=== PATIENT | female | born 1985 | race Caucasian/White ===

== ENCOUNTER 2020-07-10 14:29 | Emergency (ER) | payer SELFPAY ==
[2020-07-10 15:41] LABS: BASOPHIL 0.7 % (0-2); BILIRUBIN NEGATIVE (NEGATIVE); BLOOD NEGATIVE Ery/uL (NEGATIVE); CLARITY CLEAR (CLEAR); COLOR YELLOW (YELLOW); EOSINOPHIL 0.7 % (0-5); GLUCOSE (U) NORMAL (NORMAL); HCT 38.8 % (37.0-47.0); HGB 13.1 g/dl (12.5-16.0); LEUKOCYTES NEGATIVE Leu/uL (NEGATIVE); LYMPHOCYTE 22.7 % (15-48); MCH 30.7 pg (25.0-31.0); MCHC 33.8 g/dL (32.0-36.0); MCV 90.9 fL (78.0-100.0); MONOCYTE 5.8 % (0-12); NEUTROPHIL 69.9 % (41-80); NITRITE NEGATIVE (NEGATIVE); NRBC 0; PLT 228 K/uL (150-400); PROTEIN NEGATIVE (NEGATIVE); RBC 4.27 M/uL (4.20-5.40); RDW 12.6 % (11.5-14.0); UROBILINOGEN 0.2 mg/dL (0.2-1.0); WBC 5.7 K/uL (4.0-10.5); pH 5.5 (5.0-9.0)
[2020-07-10 15:42] LABS: HCG (URINE) SCREEN NEGATIVE (NEGATIVE)
[2020-07-10 15:59] LABS: BUN/CREAT RATIO (CALC) 13.5 RATIO; CREATININE 0.96 mg/dL (0.51-0.95); POTASSIUM 3.9 mmol/L (3.5-5.1)
== END 2020-07-10 17:17 | disposition home or self-care (01) ==
LOC: FER 14:29
PROVIDERS: Nurse Practitioner
DX: R42 Dizziness and giddiness (principal); H73.893 Other specified disorders of tympanic membrane, bilateral
CPT/HCPCS: 36415; 80048; 81003; 84703; 85025; 93005; J7030